=== PATIENT | male | born 1995 | race Caucasian/White ===

== ENCOUNTER 2016-06-04 01:48 | Emergency (ER) | payer BC ==
[2016-06-04 02:19] VITALS: O2SAT 98
[2016-06-04] MEDS ORDERED: HYDROmorphone HCL INJ 2 MG/ML VIAL IM ONE (02:39)
--- NOTE | 2016-06-04 02:42 | ED.PDOC ---
History of Present Illness - General Chief Complaint: Problem Stated Complaint: testicular pain Time Seen by Provider: 06/04/16 02:38 Source: patient, RN notes reviewed, Vital Signs reviewed Exam Limitations: no limitations - History of Present Illness Initial Comments: Patient is a 20 y/o male with severe pain in his right testicle x 2 days. The pain is a sharp pain that radiates up into his groin.He has a history of epididymitis, however this feels much worse. Timing/Duration: getting worse, other - 2 days Quality: severe, sharpness Onset Location: scrotal Radiation: groin Activites at Onset: none Improving Factors: nothing Worsening Factors: movement Associated Symptoms: fever/chills, swelling Allergies/Adverse Reactions: Allergies NO KNOWN ALLERGY Allergy (Verified 06/04/16 02:23) Home Medications: Ambulatory Orders NK [NK] 06/04/16 Review of Systems - Review of Systems Constitutional: States: chills, fever EENTM: States: no symptoms reported Respiratory: States: no symptoms reported Cardiology: States: no symptoms reported Gastrointestinal/Abdominal: States: no symptoms reported Genitourinary: States: pain Musculoskeletal: States: no symptoms reported Skin: States: no symptoms reported Neurological: States: no symptoms reported Endocrine: States: no symptoms reported Hematologic/Lymphatic: States: no symptoms reported Past Medical History (General) - Patient Medical History Hx Diabetes: No 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 MRSA Source:: Wound - Vaccination History Hx Influenza Vaccination: No Family Medical History - Family History Father Family History: Unknown Physical Exam - Physical Exam General Appearance: Alert, Anxious, Obvious distress Eyes, Ears, Nose, Throat Exam: normal ENT inspection Cardiovascular/Respiratory: no respiratory distress Male Genital Exam: erythema, scrotum tenderness (R), testicular tenderness (R) Extremity: normal range of motion, normal inspection Neurologic: alert, normal mood/affect, oriented x 3 Skin Exam: normal color Lymphatic: no adenopathy Progress - Results/Orders Results/Orders: 06/04/16 02:16 Temperature 97.8 F Pulse Rate [ 70 Right] Respiratory 16 Rate Blood Pressure 155/76 [Right Arm] O2 Sat by Pulse 98 Oximetry Laboratory Results WBC 11.3 K/mm3 (4.8-10.8) H 06/04/16 02:24 RBC 4.54 M/mm3 (4.70-6.10) L 06/04/16 02:24 Hgb 14.5 gm/dL (14.0-18.0) 06/04/16 02:24 Hct 41.8 % (42.0-52.0) L 06/04/16 02:24 MCV 92.1 fl (80.0-94.0) 06/04/16 02:24 MCH 31.9 pg (27.0-31.0) H 06/04/16 02:24 MCHC 34.6 g/dL (33.0-37.0) 06/04/16 02:24 RDW 12.0 % (11.5-14.5) 06/04/16 02:24 Plt Count 232 K/mm3 (130-400) 06/04/16 02:24 MPV 8.5 fl (7.40-10.4) 06/04/16 02:24 Absolute Neuts (auto) 7.90 K/uL (1.8-6.8) H 06/04/16 02:24 Absolute Lymphs (auto) 2.30 K/uL (1.0-3.4) 06/04/16 02:24 Absolute Monos (auto) 1.10 K/uL (0.2-0.8) H 06/04/16 02:24 Absolute Eos (auto) 0.10 K/uL (0.0-0.4) 06/04/16 02:24 Absolute Basos (auto) 0.00 K/uL (0.0-0.1) 06/04/16 02:24 Neutrophils % 69.4 % (42.0-78.0) 06/04/16 02:24 Lymphocytes % 20.4 % (20.0-50.0) 06/04/16 02:24 Monocytes % 9.3 % (2.0-9.0) H 06/04/16 02:24 Eosinophils % 0.6 % (1.0-5.0) L 06/04/16 02:24 Basophils % 0.3 % (0.0-2.0) 06/04/16 02:24 Urine Color Yellow (Yellow) 06/04/16 02:25 Urine Appearance Clear (Clear) 06/04/16 02:25 Urine pH 6.5 (4.5-7.8) 06/04/16 02:25 Ur Specific Rhodes 1.025 (1.005-1.030) 06/04/16 02:25 Urine Protein Negative mg/dL 06/04/16 02:25 Urine Glucose (UA) Negative mg/dL (Negative) 06/04/16 02:25 Urine Ketones Negative mg/dL (NEGATIVE) 06/04/16 02:25 Urine Blood Negative (Negative) 06/04/16 02:25 Urine Nitrite Negative 06/04/16 02:25 Urine Bilirubin Negative (NEGATIVE) 06/04/16 02:25 Urine Urobilinogen 0.2 mg/dL (0.2-1.0) 06/04/16 02:25 Ur Leukocyte Esterase Negative (Negative) 06/04/16 02:25 Urine RBC 0 /hpf 06/04/16 02:25 Urine WBC 0 /hpf 06/04/16 02:25 Ur Epithelial Cells 0 /hpf 06/04/16 02:25 Urine Bacteria 0 06/04/16 02:25 Departure - Departure Clinical Impression: Testicular pain, right Time of Disposition: 03:09 Disposition: Transfer to Hospital Condition: Fair Home Medications: Ambulatory Orders NK [NK] 06/04/16 Transfer to Outside Facility - Transfer Information Accepting Provider:: Dr. Cullen Accepting Facility: [facility] Reason for Transfer: specialized care not available
[2016-06-04 03:35] VITALS: BP 159/70; TEMP 97
== END 2016-06-04 03:35 | disposition short-term general hospital (02) ==
LOC: ER 01:48
DX: N50.811 Right testicular pain (principal); Z86.14 Personal history of Methicillin resistant Staphylococcus aureus infection
CPT/HCPCS: 36415; 81001; 85025; J1170

== ENCOUNTER → 2018-09-18 | Outpatient (CLI) | payer OTHER ==
--- NOTE | 2018-09-18 16:30 | CT ---
EXAM DESCRIPTION: Abdomen/Pelvis wo Contrast CLINICAL HISTORY: 22 years Male PERIUMBILICAL PAIN COMPARISON: None. TECHNIQUE: Contiguous axial images obtained through the abdomen and pelvis without IV contrast. Reformatted images obtained. This exam was performed according to our department optimization program which includes automated exposure control, adjustment of the mA and/or kv according to patient size and/or use of iterative reconstruction technique. FINDINGS: Only noncontrast imaging is available for dictation. If additional postcontrast imaging is sent, an addendum will be issued The lung bases are clear. The liver appears unremarkable. Spleen is enlarged measuring 15.5 cm. No adrenal masses. The pancreas appears unremarkable. The kidneys appear unremarkable. No hydronephrosis or definite ureteral calculi. The gallbladder is visualized. No aneurysmal dilatation of the aorta. No bowel obstruction. Scattered mesenteric lymph nodes which are nonspecific. No free pelvic fluid. Unremarkable appendix without evidence of inflammation. IMPRESSION: No evidence of appendicitis Scattered mesenteric lymph nodes which are nonspecific in a patient of this age. Adenitis is not excluded Mild splenic enlargement Electronically signed by: Denia Rizzo MD 09/18/2018 4:27 PM CDT
== END ==
LOC: CT 12:20
PROVIDERS: ATTEND Family Medicine
DX: R16.1 Splenomegaly, not elsewhere classified (principal)

== ENCOUNTER 2019-10-06 06:00 | Day surgery (SDC) | payer BC, OTHER ==
[2019-10-06] MEDS ORDERED: PROPOFOL 200 MG/20 ML VIAL IV ONE (06:01)
[2019-10-06] MEDS ORDERED: LIDOCAINE 1% 10 ML VIAL INJ ONE ×3 (06:01→09:13)
[2019-10-06] MEDS ORDERED: SODIUM CHL 0.9% 100ML MINI-BAG 100 ML IVPB ONE (07:48)
[2019-10-06] MEDS ORDERED: LACTATED RINGERS 1,000 ML ONE (07:48)
[2019-10-06] MEDS ORDERED: ceFAZolin SODIUM 1 GM VIAL ONE ×2 (07:49→08:56)
[2019-10-06] MEDS ORDERED: VANCOMYCIN HCL INJ 1,000 MG VIAL IVPB ONE ×2 (08:56→09:13)
[2019-10-06] MEDS ORDERED: BUPIVACAINE 0.25% INJ 30 ML VIAL INJ ONE ×2 (08:56→09:13)
[2019-10-06] MEDS ORDERED: fentaNYL CITRATE INJ 50 MCG/ML 2 ML AMP ONE (09:04)
[2019-10-06] MEDS ORDERED: MIDAZOLAM INJ 2 MG/2 ML VIAL ONE (09:04)
[2019-10-06] MEDS ORDERED: ceFAZolin SODIUM 1 GM VIAL IRRIG ONE (09:13)
[2019-10-06 11:00] VITALS: BP 135/80; TEMP 97.5; O2SAT 99
--- NOTE | 2019-10-07 08:12 | OP ---
DATE OF PROCEDURE: 10/06/19 PREOPERATIVE DIAGNOSIS: 1. Ganglion cyst of the right third digit. POSTOPERATIVE DIAGNOSIS: 1. Ganglion cyst of the right third digit. PROCEDURE: 1. Excision of cyst. SURGEON: Rony Raymond MD COACH OPERATOR: Luis Daniel Nation CST, SA-C ANESTHESIA: Local with sedation. COMPLICATIONS: None. FINDINGS: Ganglion cyst of the tendon sheath at the level of the metacarpophalangeal joint on the volar aspect of the third digit. INDICATION: Theresa has a history of both pain and mass that has been intermittent in size at the level of the metacarpophalangeal joint. Because of the ongoing discomfort caused by that when gripping, he requested excision of that. After discussing the risks, benefits and alternatives to that, he gave informed consent for that. PROCEDURE: The patient was brought to the Operating Room and placed in supine position. Sedation was administered and local anesthetic was injected into the operative area. Following injection of local anesthetic, the hand was sterilely prepped and draped. Oblique incision was made directly over the mass and blunt dissection was used to dissect the mass from the surrounding tissues. After fully dissecting the mass, it was removed. There was thick, gelatinous type fluid located within the mass. The wound was very thoroughly irrigated and closed with Nylon suture. Sterile dressings were placed. The patient was allowed to awaken and then taken to the Day Surgery Unit. POSTOPERATIVE PLAN: He has been instructed to do range of motion of the digits and followup with us in two days. #[id number] MTDD
== END 2019-10-06 11:00 | disposition home or self-care (01) ==
LOC: AMB 06:00
PROVIDERS: ATTEND Orthopaedic Surgery
DX: M67.441 Ganglion, right hand (principal)
CPT/HCPCS: 01810; 26160; 80307; 87070; 88304; J0690; J2250; J3010; J3370; J3490; J7050; J7120